=== PATIENT | female | born 1960 | race Caucasian/White ===

== ENCOUNTER → 2023-07-06 14:10 | Outpatient (REF) | payer OTHER, SELFPAY | LOC: RAD 14:10 | PROVIDERS: ATTENDING PHYSICIAN Student in an Organized Health Care Education/Training Program | DX: M25.532 Pain in left wrist (principal); W19.XXXA Unspecified fall, initial encounter | CPT/HCPCS: 73110 ==

== ENCOUNTER → 2024-11-08 09:05 | Outpatient (REF) | payer OTHER, SELFPAY | LOC: PAVMRI 09:05 | PROVIDERS: ATTENDING PHYSICIAN Psychiatry & Neurology Neurology | DX: R41.3 Other amnesia (principal); Z87.820 Personal history of traumatic brain injury | CPT/HCPCS: 70551 ==